=== PATIENT | female | born 1940 | race Caucasian/White ===

== ENCOUNTER 2019-10-15 11:30 | Emergency (ER) | payer BC, MEDICARE, OTHER ==
[~2019-10-15] VITALS: Ht 160 cm; Wt 54.4 kg
[~2019-10-15 11:30] MED LIST: CEPHALEXIN500 MG ORAL
[2019-10-15 11:39] VITALS: BP 137/48
--- NOTE | 2019-10-15 11:39 | NUR ---
ED Nurse Note: Patient walked in to ED c/o dog bite to her right side of the mouth. Per pt, she was bitten by her own dog. Pt is on aspirin once a week and hasnt been taken one for this week. Noted with minimal controlled bleeding.
--- NOTE | 2019-10-15 11:40 | NUR ---
ED Nurse Note: Dr. Vázquez at bedside.
[2019-10-15] MEDS ORDERED: Tetanus/Diptheria/Pertussis IM ONE (11:45)
[2019-10-15] MEDS ORDERED: Augmentin 875mg Tab ORAL ONE (11:45)
[2019-10-15 13:00] VITALS: BP 142/78
--- NOTE | 2019-10-15 14:06 | Emergency Room Report ---
History of Present Illness General Chief Complaint: Animal Bite Source: Patient Present Illness HPI This patient states that she stepped on her dog and the dog jumped up and bit her in the face. She has a gaping wound on her right upper lip. Allergies: Coded Allergies: No Known Allergies (Unverified , 05/05/14) COVID-19 Screening Contact w/high risk pt: No Recent Travel to affected area: No Experienced COVID-19 symptoms?: No COVID-19 Testing performed PROFESSOR OF MUSICOLOGY: No Patient History Past Medical History: HTN Social History: Denies: smoking, alcohol use, drug use Last Menstrual Period: NA Reviewed Nursing Documentation: PMH: Agreed; PSxH: Agreed Nursing Documentation-PMH Past Medical History: No History, Except For Hx Hypertension: Yes Review of Systems All Other Systems: negative except mentioned in HPI Physical Exam Vital Signs Date Time Temp Pulse Resp B/P (MAP) Pulse Ox O2 Delivery O2 Flow Rate FiO2 10/15/19 11:35 98.1 65 15 137/48 (77) 98 Room Air Sp02 EP Interpretation: reviewed, normal General Appearance: no apparent distress, alert, GCS 15, non-toxic Head: normocephalic, atraumatic Eyes: bilateral eye normal inspection, bilateral eye PERRL ENT: hearing grossly normal, normal pharynx, no angioedema, normal voice, other - 2cm of complete avulsion of the R. 1/3 of the upper lip. 2 lacerations just inferior and lateral to the R. nare (superficial) Neck: full range of motion, supple/symm/no masses Respiratory: chest non-tender, lungs clear, normal breath sounds, speaking full sentences Cardiovascular #1: regular rate, rhythm, no edema Cardiovascular #2: 2+ carotid (R), 2+ carotid (L), 2+ radial (R), 2+ radial (L) , 2+ dorsalis pedis (R), 2+ dorsalis pedis (L) Gastrointestinal: normal bowel sounds, non tender, soft, non-distended, no guarding, no rebound Rectal: deferred Genitourinary: normal inspection, no CVA tenderness Musculoskeletal: back normal, normal range of motion, calf tenderness, gait/ station normal, non-tender Neurologic: alert, motor strength/tone normal, oriented x3, sensory intact, responsive, speech normal Psychiatric: judgement/insight normal, memory normal, mood/affect normal, no suicidal/homicidal ideation Reflexes: 3+ bicep (R), 3+ bicep (L), 3+ tricep (R), 3+ tricep (L), 3+ knee (R) , 3+ knee (L) Lymphatic: no adenopathy Medical Decision Making Diagnostic Impression: Primary Impression: Bite by animal Additional Impression: Laceration ER Course This patient has a very complicated upper lip avulsion/laceration. This will need repair by a plastic surgeon and may need reconstruction. I attempted to call approximately 8 different plastic surgeons on staff here at [facility] and none were available for consultation on this patient. I did consult the general surgeon zoning administrator the [facility]. The patient was given Tdap and oral Augmentin. This patient needs evaluation by a plastic surgeon. [facility] transfer center was contacted for requested transfer for specialty care. The patient is pending evaluation and repair of the laceration by a plastic surgeon after transfer to [facility]. The patient is awaiting transfer to [facility] at this time. Last Vital Signs Date Time Temp Pulse Resp B/P (MAP) Pulse Ox O2 Delivery O2 Flow Rate FiO2 10/15/19 11:39 98.1 65 15 137/48 98 Room Air Disposition: SHORT-TERM HOSP Condition: Stable Referrals: NON PHYSICIAN (PCP) Ivy Rice DO October 15, 2019 14:06
--- NOTE | 2019-10-15 15:17 | NUR ---
ED Nurse Note: Report given to Stephen ROUSE from [facility].
--- NOTE | 2019-10-15 15:28 | Consultation ---
History of Present Illness General Date patient seen: October 15, 2019 Reason for Hospitalization: Animal Bite Present Illness HPI This is a very pleasant 79-year-old female who presents [facility] for evaluation of animal bite injury. Patient is very pleasant and states that she was very scared this morning after she stepped on her dog. States she did know her dog was laying there and she stepped on him upon walking and the dog in a startled state jumped up and bit her. Patient sustained a dog bite injury to her face and was brought to emergency department at [facility] for evaluation. Patient states she is very scared but not in much pain. States she does not feel much in her mouth and it is all numb. No nausea vomiting fever chills. Given the location and the injury surgery was called to evaluate and assist with care. Patient seen, patient evaluated, chart reviewed. No active bleeding currently. States that there was blood when she saw her earlier. Allergies: Coded Allergies: No Known Allergies (Unverified , 05/05/14) COVID-19 Screening Contact w/high risk pt: No Recent Travel to affected area: No Experienced COVID-19 symptoms?: No Medication History Scheduled Cephalexin* (Keflex*), 500 MG ORAL EVERY 6 HOURS Patient History History Provided By: Patient, Medical Record, PMD Healthcare decision maker Resuscitation status Advanced Directive on File Past Medical/Surgical History Past Medical/Surgical History: (1) Laceration (2) Bite by animal (3) Laceration Review of Systems Review of Symptoms General ROS: no weight loss or fever Psychological ROS: no depression or mood changes, no memory loss Ophthalmic ROS: no visual changes or eye irritation ENT ROS: no nasal congestion, hearing loss, dizziness Allergy and Immunology ROS: no allergic symptoms or urticaria Hematological and Lymphatic ROS: no swollen glands, unusual bleeding or bruising Endocrine ROS: no polyuria, polydipsia, weight changes, temperature intolerance Respiratory ROS: no cough, shortness of breath, or wheezing Cardiovascular ROS: no chest pain or dyspnea on exertion Gastrointestinal ROS: denies abdominal pain, bright red blood in stool. Musculoskeletal ROS: no myalgias or arthralgias Neurological ROS: no TIA or stroke symptoms Dermatological ROS: no new or changing skin lesions, rashes or pruritis Physical Exam Physical Exam General appearance: alert, cooperative, no distress, appears stated age Head: Normocephalic, without obvious abnormality, atraumatic Eyes: conjunctivae/corneas clear. PERRL, EOM's intact. Fundi benign Throat: Lips, mucosa, and tongue normal. Teeth and gums normal Neck: supple, symmetrical, trachea midline, no adenopathy, thyroid: not enlarged, symmetric, no tenderness/mass/nodules, no carotid bruit and no JVD Lungs: clear to auscultation bilaterally Heart: regular rate and rhythm, S1, S2 normal, no murmur, click, rub or gallop Abdomen: soft, non-tender. Bowel sounds normal. No masses, no organomegaly Extremities: extremities normal, atraumatic, no cyanosis or edema Pulses: 2+ and symmetric Skin: Skin color, texture, turgor normal. No rashes or lesions see below Neurologic: Grossly normal Last 24 Hour Vital Signs Date Time Temp Pulse Resp B/P (MAP) Pulse Ox O2 Delivery O2 Flow Rate FiO2 10/15/19 13:00 98.1 73 22 142/78 96 Room Air 10/15/19 11:39 98.1 65 15 137/48 98 Room Air 10/15/19 11:35 98.1 65 15 137/48 (77) 98 Room Air Height (Feet): 5 Height (Inches): 3.00 Weight (Pounds): 120 Assessment/Plan Problem List: (1) Bite by animal Assessment & Plan: Patient sustained a laceration animal bite to her right upper lip. Caused by her dog after accidental injury. Patient is currently stable and otherwise well. She states she is very scared and nervous given the recent trauma but feels otherwise okay. No active bleeding but states she was bleeding at home and when she received to the emergency department. After complete evaluation in the emergency department and was identified the patient has a very complex right upper lip laceration at the vermilion border extending from the mid lip laterally to the lateral apex of the lip. A majority of the lip is avulsed off and a flap that does not look viable. The injury oversees the vermilion border as well as the majority of the lip and portion of the buccal mucosa. Given the extent of the injury at the location and the complexity of it though general surgery can repair this a discussed with emergency room physician and recommend plastic surgery or facial ENT for evaluation. Currently not available [facility] and after diligent effort on the emergency management department physicians part we were able to obtain transfer to [facility] for higher level of care and complex repair by specialty surgery. Appropriate care plan initiated transfer of care initiated patient understanding of the care plan and grateful. For now wash wound with normal saline and apply a moist gauze upon transfer evaluation at tertiary center thank you for let me participate in patient's care ICD Codes: T14.8XXA - Other injury of unspecified body region, initial encounter SNOMED: [id number] (2) Laceration ICD Codes: T14.8 - Other injury of unspecified body region SNOMED: 085274176 (3) Laceration ICD Codes: T14.8 - Other injury of unspecified body region SNOMED: 705156087 Krishan Vázquez October 15, 2019 15:28
[2019-10-15 15:34] VITALS: BP 142/75
--- NOTE | 2019-10-15 15:34 | NUR ---
ED Nurse Note: Pt cleared by Betty to be transferred to [facility]. Report given to Stephen ROUSE. Pt AAO x4, verbally responsive. No SOB. Pt was picked up by [facility] via [facility]. Pt left with all belongings.
== END 2019-10-15 15:34 | disposition short-term general hospital (02) ==
LOC: EMR 12:25
DX: S01.551A Open bite of lip, initial encounter (principal); S01.81XA Laceration without foreign body of other part of head, initial encounter; W54.0XXA Bitten by dog, initial encounter; Y92.9 Unspecified place or not applicable; I10 Essential (primary) hypertension; Z23 Encounter for immunization
CPT/HCPCS: 90471; 90715; 99282